=== PATIENT | male | born 1980 | race African-American/Black ===

== ENCOUNTER 2023-02-21 08:53 | Emergency (ER) | payer MEDICAID ==
[~2023-02-21] VITALS: Ht 162.6 cm; Wt 74.4 kg
[2023-02-21 08:54] VITALS: BP 136/80; PULSE 68; RESP 20; TEMP 98; O2SAT 99
--- NOTE | 2023-02-21 09:00 | NUR ---
" MY GIRL GOT A YEAST INFECTION YESTERDAY"
[2023-02-21 09:18] LABS: APPEARANCE,URINE CLEAR (CLEAR); BILIRUBIN,URINE NEGATIVE (NEGATIVE); BLOOD, URINE NEGATIVE (NEGATIVE); COLOR,URINE YELLOW (YELLOW); LEUKOCYTE ESTERASE ,URINE NEGATIVE (NEGATIVE); NITRITE, URINE NEGATIVE (NEGATIVE); UGLUCOSE NEGATIVE (NEGATIVE)
[2023-02-21] MEDS ORDERED: FLUC150T PO (09:34)
--- NOTE | 2023-02-21 09:43 | NUR ---
Patient discharged with v/s stable. Written and verbal after care instructions given and explained. Patient alert, oriented and verbalized understanding of instructions. Ambulatory with steady gait. All questions addressed prior to discharge. ID band removed. Patient advised to follow up with PMD. Rx of Diflucan given. Patient educated on indication of medication including possible reaction and side effects. Opportunity to ask questions provided and answered.
== END 2023-02-21 09:43 | disposition home or self-care (01) ==
LOC: MED 08:53
DX: B37.9 Candidiasis, unspecified (principal); Z11.3 Encounter for screening for infections with a predominantly sexual mode of transmission; Z79.899 Other long term (current) drug therapy
CPT/HCPCS: 81003; 87491; 99283

== ENCOUNTER 2023-05-31 09:36 | Emergency (ER) | payer MEDICAID ==
[~2023-05-31] VITALS: Ht 162.6 cm; Wt 63.5 kg
[~2023-05-31 09:36] MED LIST: FLUC150T PO
[2023-05-31 10:06] VITALS: BP 107/52; PULSE 112; RESP 18; TEMP 97.8; O2SAT 97
[2023-05-31] MEDS ORDERED: IBUPROFEN 600 MG TAB PO ONE (11:35)
[2023-05-31] MEDS ORDERED: ACET-10509 PO (11:38)
[2023-05-31] MEDS ORDERED: IBUP-1842 PO (11:38)
[2023-05-31 12:03] VITALS: BP 107/52; PULSE 112; RESP 18; TEMP 97.8; O2SAT 97
== END 2023-05-31 12:03 | disposition home or self-care (01) ==
LOC: MED 09:36
DX: S39.011A Strain of muscle, fascia and tendon of abdomen, initial encounter (principal); R59.0 Localized enlarged lymph nodes; Z79.899 Other long term (current) drug therapy; Z79.1 Long term (current) use of non-steroidal anti-inflammatories (NSAID); X50.0XXA Overexertion from strenuous movement or load, initial encounter; Y92.89 Other specified places as the place of occurrence of the external cause; Y93.89 Activity, other specified; Y99.8 Other external cause status
CPT/HCPCS: 99282